=== PATIENT | female | born 1995 | race Caucasian/White ===

== ENCOUNTER → 2019-12-24 17:06 | Outpatient (CLI) | payer SELFPAY ==
--- NOTE | 2019-12-24 | LES_PTH ---
PATIENT: KARLO SUGGS LOC: [facility] U#:[id number] AGE/SX: 29/F ROOM: RE12/24/[address]: Dr. Dioni Cooley MD : 1995 BED: DIS: SPEC #: [id number] RECD: 12/24/19 15:00 STATUS: LISA ADEEL #: [id number] JUAN: 12/24/19 00:[address]: Dioni Cooley DEPT: SURGICAL PATHOLOGY RECD BY: Danay Briones ENTERED: 12/25/19 07:57 SP TYPE: Lesion OTHR DR: No Primary Care Phys Tissues: Skin of forehead Procedures: Surgery Specimen Level IV HEADER OPERATION: Excision forehead nodule PRE-OP DIAGNOSIS: Skin lesion of face TISSUE SUBMITTED: Forehead tissue MICROSCOPIC DIAGNOSIS Forehead tissue, biopsy: Fragments of fibroadipose and skeletal muscle tissue with reactive changes. SJ:marty 6/10/20 MICROSCOPIC DESCRIPTION Slides are reviewed. GROSS DESCRIPTION Received in fixative is one container labeled with the patient's name and designated forehead. The specimen consists of four irregular fragments of mcfarlane-brown soft tissue that in aggregate measure 0.7 x 0.5 x 0.2 cm. The entire specimen is submitted in one cassette. / SJ:rg 12/25/19 TC:5 CPT: 06059
[2019-12-24 14:22] VITALS: BMI 19.8
== END ==
PROVIDERS: Visit Provider Surgery
DX: L98.9 Disorder of the skin and subcutaneous tissue, unspecified (principal)
CPT/HCPCS: 88305

== ENCOUNTER 2021-01-12 17:46 | Emergency (ER) | payer OTHER, SELFPAY ==
[2019-12-24 14:22] VITALS: BMI 19.8
[2021-01-12 17:47] VITALS: BP 108/74; PULSE 95; RESP 15; TEMP 37.1; O2SAT 98; BMI 21.4
--- NOTE | 2021-01-12 19:20 | US_ITS ---
INDICATION: Vaginal bleeding, possible retained products EXAMINATION: US Transvaginal Non-OB TECHNIQUE: Transvaginal (for optimal evaluation of the adnexa) pelvic ultrasound was performed. Grayscale, spectral waveform, and color flow Doppler evaluation of the adnexa. COMPARISON: None. FINDINGS: UTERUS: Arcuate configuration. Anteverted. The uterus measures 9.4 x 5 x 3.5 cm. In the lower uterine segment/cervix there is a complex heterogeneous masslike structure measuring 3.5 cm. No internal vascularity. The endometrial stripe measures 2 mm in AP diameter which is within normal limits. RIGHT OVARY: Measures 1.3 x 1.2 x 0.7 cm. Non-enlarged, normal echogenicity. There is normal arterial inflow and venous outflow present in the right ovary. LEFT OVARY: Measures 3.6 x 2.5 x 2.2 cm. Non-enlarged, normal echogenicity. There is normal arterial inflow and venous outflow present in the left ovary. FREE FLUID: None. US/Transvaginal Non- IMPRESSION: 3.5 cm complex heterogeneous masslike structure in the lower uterine segment/cervix is most likely passing products of conception. Arcuate uterus. Electronically Signed: Shree Flower MD at 21:06 EDT Tel , Service support ,
--- NOTE | 2021-01-12 19:21 | EDS_ITS ---
HPI HPI - Female History of Present Illness Chief Complaint: Vag Bleeding Informant: patient Bleeding Issue: Positive for Vaginal bleeding and Passing clots Onset: Today Context: Gradual Onset Timing: Continuous Current Severity: Heavy Current pads/hr: 1 Maximum Severity: Heavy Maximum pads/hr: 1 Narrative Narrative: Patient presents with vaginal bleeding and passing clots that began today. Patient states she has been having some mild cramping in her pelvis. Patient states she has been going through approximately 1 pad per hour. Patient states that she initially was going through a very thick pad every 1-1/2 hours. Patient states that now she is going through a normal size pad every hour. Patient admits to some lightheadedness and weakness. Patient mitts to subjective chills. Patient states she did have an elective done [address] [facility] Medical History Anxiety Skin lesion of face Home Medications cephalexin 500 mg PO Q6 #12 capsule 01/12/21 [Rx Last Taken Unknown] Allergy/AdvReac Type Severity Reaction Status Date / Time No Known Allergies Allergy Verified 01/12/21 17:47 Family History (Updated 12/14/19 @ 12:43 by Yvette Kim) Father Colon cancer Glaucoma Mother Cancer skin Surgical History History of appendectomy (~2010) History of oophorectomy (~2017) Social History Smoking Status: Never smoker ROS ROS ED Constitutional Constitutional ED: Reports chills and subjective; Denies fever(s) Eyes Eyes: Denies blurry vision or change in vision ENT ENT ED: Denies rhinorrhea or sore throat Cardiovascular Cardiovascular: Denies chest pain or palpitations Respiratory/Chest Respiratory/Chest: Reports dyspnea; Denies cough Gastrointestinal Gastrointestinal: Reports abdominal pain; Denies nausea or vomiting Genitourinary Genitourinary ED: Denies dysuria or hematuria Musculoskeletal Musculoskeletal: Reports back pain; Denies neck pain Integumentary Denies abscess or rash Neurologic Neurologic: Denies headache(s) or weakness Allergic/Immunologic Allergic/Immunologic ED: Denies mouth swelling or urticaria EXAM Physical Exam Const Vital Signs: 01/12/21 17:47 01/12/21 21:44 Temperature 98.8 F 99.4 F H Temperature Source Temporal Oral Pulse Rate 95 76 Respiratory Rate 15 18 Blood Pressure 108/74 124/76 H Blood Pressure Mean 85 92 Pulse Ox 98 98 Oxygen Delivery Method Room Air Room Air Positive well nourished and well developed General Appearance ED: well developed HEENT Reports moist mucous membranes Neck supple and no JVD Resp normal respiratory effort and clear to auscultation bilaterally Cardio regular rate, regular rhythm and no murmurs GI normal to inspection, nondistended, normoactive bowel sounds and non-tender Palpation: soft Extremity normal to inspection General Extremety ED: Negative for edema or tenderness General Extremity: Negative for edema Neuro oriented x3, CN's II-XII intact bilaterally and no sensory deficits noted Sensorium / Orientation: alert Motor Exam: strength 5/5 throughout Psych mental status grossly normal Skin no rashes or lesions noted MDM MDM MDM Narrative Medical decision making narrative: CBC was within normal limits. Serum hCG was positive. Urinalysis shows leukocyte esterase of 100 with 10-25 white blood cells. There were greater than 100 red blood cells. There is 3+ bacteria. Pelvic ultrasound was obtained. There is a 3.5 cm complex heterogeneous masslike structure in the lower uterine segment/cervix. This is most likely products of conception that are passing. Patient did pass some tissue here in the emergency department. Nurse reported that this was harder than normal clot. This is most likely the products of conception. Patient was advised to follow- up with her [employer]ICIAN in 3 to 5 days. Patient was given a prescription for Keflex. Patient was instructed to return if worse in any way. Patient understood and was agreeable with the plan. All questions were answered. Lab Data Attestation: I reviewed the patient's lab results. Labs: Laboratory Results - last 24 hr 01/12/21 01/12/21 01/12/21 19:33 19:33 21:20 WBC 8.4 RBC 3.79 L Hgb 11.6 L Hct 35.5 L MCV 93.7 MCH 30.6 MCHC 32.7 RDW Std Deviation 40.9 RDW Coeff of Anna 11.9 Plt Count 246 MPV 9.3 Immature Gran % (Auto) 0.400 Neut % (Auto) 75.0 H Lymph % (Auto) 17.4 L Brewster % (Auto) 5.9 Eos % (Auto) 0.8 Baso % (Auto) 0.5 Absolute Neuts (auto) 6.3 Absolute Lymphs (auto) 1.45 Nucleated RBC % 0 Serum , Qual POSITIVE H Urine Color Red Urine Clarity Sl. Cloudy Urine pH 7.0 Ur Specific Spencer 1.015 Urine Protein 100 H Urine Glucose (UA) Normal Urine Ketones 5 H Urine Occult Blood 250 H Urine Nitrite Negative Urine Bilirubin Negative Urine Urobilinogen Normal Ur Leukocyte Esterase 100 H Urine RBC > 100 SEEN Urine WBC 10-25 SEEN Ur Squamous Epith Cells 0 SEEN Urine Bacteria 3+ Urine Mucus 0 SEEN Radiography Diagnostic Testing: Radiology Impression Transvaginal US 01/12/21 19:20 IMPRESSION: 3.5 cm complex heterogeneous masslike structure in the lower uterine segment/cervix is most likely passing products of conception. Arcuate uterus. Electronically Signed: Shree Flower MD at 21:06 EDT Tel , Service support , Discharge Plan Triage Chief Complaint: Vag Bleeding ED Provider: Toño Whittington Dx/Rx/DC Orders Clinical Impression: Urinary tract infection, Hemorrhage due to retained products of conception Instructions: ED MISCARRIAGE Incomplete, ED CYSTITIS Female Adult Prescriptions: New cephalexin [cephalexin] 500 MG capsule 500 mg PO Q6 Qty: 12 RF: 0 Primary Care Provider: Care Physician,No Primary Referrals: Care Physician,No Primary [Primary Care Provider] - 3-5 Days Activity Restrictions/Additional Instructions: Follow-up with your [employer]ICIAN in 3 to 5 days Disposition Disposition: Home, Self Care
[2021-01-12 19:43] LABS: Absolute Lymphocyte Count 1.45 X10^3/uL (0.83-4.51); Absolute Neutrophil Count 6.3 X10^3/uL (2.0-7.7); Basophil# 0.04 X10^3/uL; Basophil% 0.5 % (0-1); Eosinophil# 0.07 X10^3/uL; Eosinophils% 0.8 % (0-5); Hematocrit 35.5 % (37-47); Hemoglobin 11.6 g/dL (12.0-15.0); Lymphocyte # 1.45 X10^3/ul (0.83-4.51); Lymphocyte % 17.4 % (19-41); Mean Corp Hgb Conc 32.7 g/dL (32-36); Mean Corpuscular Hgb 30.6 pg (27.0-32.0); Mean Corpuscular Volume 93.7 fL (81-99); Mean Platelet Vol. 9.3 fl (6.2-12.0); Monocyte# 0.49 X10^3/uL; Monocyte% 5.9 % (0-10); NRBC Flagged by Analyzer 0 % (0-5); Neutrophil # 6.27 X10^3/uL (2.7-7.7); Platelet Count 246 K/mm3 (150-450); RBC Distribution Width CV 11.9 % (11.6-14.6); RBC Distribution Width SD 40.9 fl (35.1-43.9); Red Blood Count 3.79 M/mm3 (4.2-5.4); White Blood Count 8.4 K/mm3 (4.4-11.0)
[2021-01-12 19:54] LABS: Internal QC Validated? YES +Cl - CLEAR BKGD
[2021-01-12 19:55] LABS: Pregnancy, Serum, hCG Quali. POSITIVE Negative
[2021-01-12 21:24] LABS: Mucous, Urine 0 SEEN /hpf (<or=2+); Squamous Epithelial Cells - UA 0 SEEN /hpf (5-10)
[2021-01-12 21:30] LABS: Color, Urine Red (Yellow); Glucose, Dipstick Normal (Normal); Ketone-Dipstick 5 mg/dl (Negative); Leukocyte Esterase-Dipstick 100 /ul (Negative); Nitrite-Dipstick Negative (Negative); Occult Blood-Urine 250 /ul (Negative); Protein-Dipstick 100 mg/dl (Negative); Specific Gravity, Urine 1.015 (1.002-1.030); Urine Bilirubin Dipstick Negative (Negative); Urine Clarity Sl. Cloudy (Clear); Urine Urobilinogen Normal (Normal)
[2021-01-12 21:38] LABS: Bacteria 3+ /hpf (None Seen); Red Blood Cells-Urine > 100 SEEN /hpf (0-5); White Blood Cells 10-25 SEEN /hpf (0-5)
[2021-01-12 21:44] VITALS: BP 124/76; PULSE 76; RESP 18; TEMP 37.4; O2SAT 98
== END 2021-01-12 22:17 | disposition home or self-care (01) ==
PROVIDERS: Emergency Provider Emergency Medicine
DX: O04.6 Delayed or excessive hemorrhage following (induced) termination of pregnancy (principal); O04.88 Urinary tract infection following (induced) termination of pregnancy; Q51.810 Arcuate uterus; R42 Dizziness and giddiness; R06.00 Dyspnea, unspecified; R53.1 Weakness; R10.9 Unspecified abdominal pain; M54.9 Dorsalgia, unspecified; F41.9 Anxiety disorder, unspecified
CPT/HCPCS: 76830; 81001; 84703; 85025; 99282